=== PATIENT | male | born 1995 | race Caucasian/White ===

== ENCOUNTER 2019-09-11 23:07 | Emergency (ER) | payer OTHER, SELFPAY ==
[~2019-09-11] VITALS: Ht 172.7 cm; Wt 79.4 kg
--- OUTSIDE RECORDS SUMMARY | 2019-09-11 23:10 | XMS REPORT | Summary of Care ---
Author Author [facility] [place] Address Unknown Phone Unavailable Encounter [facility] [place]) [id number] Date(s): 09/06/19 - 09/06/19 [facility] [place] [facility]. [address] [place] [address]- Discharge Disposition: Home or Self Care Attending Physician: Payal Castrejon MD Vital Signs Most recent to 1 oldest [Reference Range]: Height 172.72 cm (09/06/19 9:09 PM) Blood Pressure 112/72 mmHg [90-140/60-90 mmHg] (09/06/19 9:09 PM) Peripheral Pulse 111 bpm Rate [60-100 bpm] *HI* (09/06/19 9:09 PM) Weight 84.091 kg (09/06/19 9:09 PM) Body Mass Index 28.19 m2 (09/06/19 9:09 PM) Problem List Condition Effective Dates Status Health Status Informan t Headache(Confirmed) Active Suspected COVID-19 Active virus infection(Confirmed) Allergies, Adverse Reactions, Alerts No Known Medication Allergies Medications Excedrin PO, Q6H, 0 Refill(s) Start Date: 09/06/19 Status: Ordered Fioricet 300 mg-50 mg-40 mg oral capsule 1 cap, PO, Q4H, PRN PRN Headache, Do not exceed 6 capsules in 24 hours, X 10 day , # 60 cap, 0 Refill(s) Start Date: 09/06/19 Stop Date: 09/16/19 Status: Ordered ibuprofen 0 Refill(s) Start Date: 09/06/19 Status: Ordered Results No data available for this section Immunizations No data available for this section Procedures No data available for this section Social History Social History Type Response Smoking Status Never smoker; Exposure to T obacco Smoke None; Cigarette Smoking Last 365 Days No; Reg Smoking Cessation Counseli ng No entered on: 09/06/19 Assessment and Plan No data available for this section
--- OUTSIDE RECORDS SUMMARY | 2019-09-11 23:10 | XMS REPORT | Continuity of Care Document ---
Author Author Luis Dodd [facility] CALLIE Cerda Organization [email or web address] Address Unknown Phone Unavailable Care Team Providers Care Icing Coater Name Role Phone [email or web address] Unavailable Un available Problems Problem Status Onset Date Classification Date Reported Comments Source Headache (finding) Active Problem 09/08/2019 [facility] Suspected disease caused by 2019-nCoV Active Problem [facility] Medications Medication Details Route Status Patient Instructions Ordering Provider Order Date Source Ibuprofen 0 Refill(s) Active 09/07/2019 [facility] Excedrin PO, Q6H, 0 Refill(s) Active 09/07/2019 [facility] Acetaminophen 300 MG / butalbital 50 MG / Caffeine 40 MG Oral Capsule [Fioricet] 1 cap, PO, Q4H, PRN PRN Headache, Do not exceed 6 capsules in 24 hours, X 10 day, # 60 cap, 0 Refill(s) Active 09/07/2019 [facility] Allergies, Adverse Reactions, Alerts Substance Category Reaction Severity Reaction type Status Date Reported Comments Source No Known Medication Allergies Assertion Drug aller gy [facility] Immunizations No Data Provided for This Section Results No Data Provided for This Section Pathology Reports No Data Provided for This Section Diagnostic Reports No Data Provided for This Section Consultation Notes No Data Provided for This Section Discharge Summaries No Data Provided for This Section History and Physicals No Data Provided for This Section Vital Signs Vital Sign Value Date Comments Source Systolic (mm Hg) 112 09/07/2019 [facility] Diastolic (mm Hg) 72 09/07/2019 [facility] Heart Rate 111 09/07/2019 [facility] Height 172.72 cm 09/07/2019 [facility] Weight 84.091 09/07/2019 [facility] BMI Calculated 28.19 09/07/2019 [facility] Encounters Location Location Details Encounter Type Encounter Number Reason For Visit Attending Provider ADM Date DC Date Status Source Outpatient [id number] Payalmarcelina Castrejon 09/06/2019 [facility] [place] [facility] [id number] Lucía 09/07/2019 09/07/2019 [facility] Procedures No Data Provided for This Section Assessment and Plan No Data Provided for This Section Plan of Care No Data Provided for This Section Social History Social History Date Source Social History TypeResponse Smoking Status Never smoker; Exposure to Tobacco Smoke None; Cigarette Smoking Last 365 Days No; Reg Smoking Cessation Counseling No entered on: 09/06/19 09/07/2019 [facility] Family History No Data Provided for This Section Advance Directives No Data Provided for This Section Functional Status No Data Provided for This Section
--- OUTSIDE RECORDS SUMMARY | 2019-09-11 23:10 | XMS REPORT | Clinical Summary ---
Author Author [facility] Address Unknown Phone Unavailable Care Team Providers Care Occupational Health Technician Name Role Phone Asked, No Pcp PCP Unavailable Allergies No Known Allergies Medications No known medications Active Problems Problem Noted Date Sepsis 12/03/2017 Social History Date Tobacco Use Types Packs/Day Years Used Never Smoker Smokeless Tobacco: Never Used Tobacco Cessation: Counseling Given: No Drinks/Week oz/Week Comments Alcohol Use No Sex Assigned at Date Recorded Not on file Industry Job Start Date Occupation Not on file Not on file Not on file Travel End Travel History Travel Start No recent travel history available. 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
[2019-09-11] MEDS ORDERED: KETOROLAC TROMETHAMINE 30 MG/ML VIAL IV STA (23:34)
[2019-09-11] MEDS ORDERED: DIPHENHYDRAMINE HCL INJ 50 MG/ML VIAL IV ONE (23:45)
[2019-09-11] MEDS ORDERED: DEXAMETHASONE SOD PHOS 10 MG/1 ML VIAL IV ONE (23:45)
[2019-09-12] MEDS ORDERED: DIPHENHYDRAMINE HCL INJ 50 MG/ML VIAL ONE
[2019-09-12] MEDS ORDERED: DEXAMETHASONE SOD PHOS 10 MG/1 ML VIAL ONE
[2019-09-12] MEDS ORDERED: KETOROLAC TROMETHAMINE 30 MG/ML VIAL ONE
--- NOTE | 2019-09-12 00:32 | Diagnostic Imaging Report ---
History: Migraine Comparison studies: None Technique: Axial images were obtained from the skull base to the vertex. Coronal and sagittal reconstructions obtained from the axial data. Dose modulation, iterative reconstruction, and/or weight based adjustment of the mA/kV was utilized to reduce the radiation dose to as low as reasonably achievable. Findings: Scalp/skull: No abnormalities. No fractures, blastic or lytic lesions. Extra-axial spaces: No masses. No fluid collections. Brain sulci: Appropriate for age. Ventricles: Normal in size and configuration. No hydrocephalus. Parenchyma: No abnormal densities. No masses, hemorrhage, acute or chronic cortical vascular insults. Sellar/suprasellar region: No abnormalities Craniocervical junction: Patent foramen magnum. No Chiari one malformation. IMPRESSION: No abnormalities . Signed by: DR Srinath Alvarado M.D. on 09/12/2019 12:28 AM
--- NOTE | 2019-09-12 00:34 | Diagnostic Imaging Report ---
EXAM: CT Abdomen and Pelvis without contrast INDICATION: Right upper quadrant pain. COMPARISON: None. TECHNIQUE: Abdomen and pelvis were scanned utilizing a multidetector helical scanner from the lung base to the pubic symphysis without administration of IV contrast. Coronal and sagittal reformations were obtained. Lack of intravenous and oral contrast somewhat limits evaluation. IV CONTRAST: None. ORAL CONTRAST: None COMPLICATIONS: None RADIATION DOSE: Total DLP: 1333 mGy*cm Estimated effective dose: (DLP x 0.015 x size factor) mSv CTDIvol has been reviewed. It is below the limits set by the Radiation Protocol Committee (RPC). FINDINGS: LINES and TUBES: None. LOWER THORAX: Unremarkable HEPATOBILIARY: No evidence of focal lesion. No biliary ductal dilation. GALLBLADDER: No radio-opaque stones or sludge. No wall thickening. SPLEEN: Mild splenomegaly, measuring up to 12.6 cm. PANCREAS: No focal masses or ductal dilatation. ADRENALS: No adrenal nodules KIDNEYS/URETERS: No evidence of hydronephrosis, solid mass, or stone. GI TRACT: There is fatty infiltration to the wall of the ileum including the terminal ileum. No evidence of bowel obstruction. There is contrast and moderate volume stool in the proximal colon. The appendix is not identified, however there are no secondary signs of appendicitis. PELVIC ORGANS/BLADDER: Unremarkable. LYMPH NODES: There are prominent bilateral inguinal lymph nodes, which measure up to 1.2 cm in the right inguinal region. No evidence of lymphadenopathy meeting size criteria. VESSELS: Unremarkable. PERITONEUM / RETROPERITONEUM: No free air or fluid. BONES AND SOFT TISSUES: Unremarkable. CONCLUSION: MIld splenomegaly measuring 12.6 cm. Fatty infiltration of the wall of the ileum may reflect sequela of prior inflammatory or infectious ileitis. Recommend clinical correlation. Prominent bilateral inguinal lymph nodes, likely reactive. Moderate amount of stool and contrast in the proximal colon. Signed by: Dr. Arnel Coyne MD on 09/12/2019 12:31 AM
--- NOTE | 2019-09-12 00:46 | Emergency Department Note ---
History of Present Illnes History of Present Illness Chief Complaint: Abdominal Complaints History of Present Illness This is a 23 year old male ABDOMINAL PAIN FOR 2 DAYS, NO VOMITING NO FEVER.ALSO COMPLAINING OF HEADACHE. SEEN HIS MD AND STARTED ON [facility] . Historian: Patient Arrival Mode: Car Onset (how long ago): day(s) (2) Location: EPIGASTRIC Quality: DULL Radiation: non-radiation, back, neck, extremity, abdomen, periumbilical, flank, proximal, distal, other Severity: moderate Onset quality: gradual Duration (how long): day(s) (2) Timing of current episode: intermittent Progression: waxing and waning Chronicity: new Context: recent illness, recent surgery, recent immobilization, recent travel, trauma/injury, new medications, hx of DVT/PE, non-compliance w/ medications, o ther Relieving factors: none Exacerbating factors: none Associated symptoms: denies other symptoms Treatments prior to arrival: none Past Medical/Family History Physician Review I have reviewed the patient's past medical and family history. Any updates have been documented here. Past Medical History Recent Fever: No Clinical Suspicion of Infectio: No New/Unexplained Change in Ment: No Past Medical History: None Past Surgical History: None Social History Smoking Cessation: Never Smoker Alcohol Use: None Any Illegal Drug Use: No TB Exposure/Symptoms: No Physically hurt or threatened: No Other Any Pre-Existing Lines (PICC,: No Is patient up to date on immun: No Last Flu: NO Last Pneumovax: NA Review of Systems Review of Systems Constitutional: no symptoms EENTM: no symptoms Cardiovascular: no symptoms Respiratory: no symptoms Gastrointestinal: no symptoms Genitourinary: no symptoms Musculoskeletal: no symptoms Neurological: as per HPI, headache Psychological: no symptoms Endocrine: no symptoms Hematological/Lymphatic: no symptoms Review of other systems All other systems reviewed and negative. Physical Exam Related Data Triage Vital Signs Vital Signs Date Time Temp Pulse Resp B/P (MAP) Pulse Ox O2 Delivery O2 Flow Rate FiO2 09/11/19 23:12 98.6 76 16 114/70 100 Vital signs reviewed: Yes Physical Exam CONSTITUTIONAL Constitutional: well-developed, well-nourished HENT HENT: normocephalic, atraumatic, oropharynx clear/moist, nose normal HENT L/R: left ext ear normal, right ext ear normal EYES Eyes: PERRL, conjunctivae normal NECK Neck: ROM normal PULMONARY Pulmonary: effort normal, breath sounds normal CARDIOVASCULAR Cardiovascular: regular rhythm, heart sounds normal, capillary refill normal, normal rate GASTROINTESTINAL Abdominal: soft, nontender, bowel sounds normal, tender (EPIGASTRIC) GENITOURINARY Genitourinary: exam deferred SKIN Skin: warm, dry MUSCULOSKELETAL Musculoskeletal: ROM normal NEUROLOGICAL Neurological: alert, oriented x 3, no gross motor or sensory deficits PSYCHOLOGICAL Psychological: mood/affect normal, judgement normal Results Laboratory Lab results reviewed: Yes Imaging Imaging results reviewed: Yes Critical Care Time Subsequent provider I assumed direction of critical care for this patient from another provider of my specialty. Assessment & Plan Reassessment Reassessment time: 00:45 Reassessment RESOLVED Assessment & Plan Final Impression: (1) Headache (2) Abdominal pain Assessment & Plan FLEXERIL Depart Disposition: HOME, SELF-CARE Last Vital Signs Date Time Temp Pulse Resp B/P (MAP) Pulse Ox O2 Delivery O2 Flow Rate FiO2 09/11/19 23:12 98.6 76 16 114/70 100 Medications in the ED Ketorolac Tromethamine 15 mg ONCE STAT IV ; Start 09/11/19 at 23:34; Stop 09/11/19 at 23:35; Status UNV Dexamethasone Sodium Phosphate 10 mg ONCE ONCE IV ; Start 09/11/19 at 23:45; Stop 09/11/19 at 23:46; Status UNV Diphenhydramine HCl 25 mg NOW ONCE IV ; Start 09/11/19 at 23:45; Stop 09/11/19 at 23:46; Status UNV ANUJ REGAN MD September 12, 2019 00:46
[2019-09-12] MEDS ORDERED: CYCLOBENZAPRINE5 MG PO (00:47)
[2019-09-12 01:10] VITALS: BP 116/71
== END 2019-09-12 01:10 | disposition home or self-care (01) ==
LOC: FSED 23:07
DX: R10.13 Epigastric pain (principal); R51 Headache
CPT/HCPCS: 70450; 74176; 80048; 80076; 81003; 85025; 96374; 96375; 96376; 99284; J1100; J1200; J1885